=== PATIENT | female | born 1995 | race Hispanic/Latino ===

== ENCOUNTER 2024-02-25 02:13 | Observation (INO) | payer MEDICAID ==
[2024-02-25] MEDS ORDERED: Morphine 4 MG/ML VIAL ONE (02:33)
[2024-02-25] MEDS ORDERED: Ondansetron PF 4 MG/2 ML Vial ONE ×2 (02:33→08:27)
[2024-02-25 02:45] LABS: #Basophils 0.04 10x3/uL (0.0-0.2); #Eosinophils 0.13 10x3/uL (0.0-0.5); #Monocytes 0.47 10x3/uL (0.0-1.1); #Neutrophils 3.76 10x3/uL (1.5-8.4); %Basophils 0.5 % (0.0-2.0); %Eosinophils 1.7 % (0.0-6.0); %Lymphocytes 42.2 % (18.0-47.0); %Monocytes 6.1 % (0.0-10.0); %Neutrophils 49.2 % (40.0-75.0); Hematocrit 34.4 % (34.9-44.5); Mean Corpuscular HGB CONC 34.9 g/dL (32.0-36.0); Mean Corpuscular Hemoglobin 29.9 pg (27.0-33.0); Mean Corpuscular Volume 85.6 fL (81.6-98.3); Mean Platelet Volume 9.3 fL (7.4-10.4); Platelet Count 267 10x3/uL (150-450); RBC Distribution Width 12.7 % (11.5-14.5); Red Blood Cell (RBC) Count 4.02 10x6/uL (3.90-5.03); White Blood Cell (WBC) Count 7.7 10x3/uL (3.5-10.5)
[2024-02-25 03:08] LABS: ALT (SGPT) 50 U/L (8-55); AST (SGOT) 51 U/L (5-34); Albumin 3.9 g/dL (3.5-5.0); Alkaline Phosphatase 69 U/L (40-110); Anion Gap 15 mmol/L (10-20); BUN (Urea Nitrogen) 15 mg/dL (7.0-18.7); Bilirubin, Total 0.4 mg/dL (0.2-1.2); Calc. Creatinine Clearance 0 mL/min (70-130); Calcium 9.3 mg/dL (7.8-10.44); Carbon Dioxide 20 mmol/L (22-29); Chloride 106 mmol/L (98-107); Estimated GFR 117; Globulin 3.1 g/dL (2.4-3.5); Glucose 124 mg/dL (70-105); Lipase 36 U/L (8-78); Potassium 3.7 mmol/L (3.5-5.1); Sodium 137 mmol/L (136-145)
[2024-02-25 03:22] LABS: Bilirubin Neg (Negative); Blood, Urine Negative (Negative); Clarity Clear (Clear); Glucose, Urine (Dipstick) Normal (Negative); Ketone, Urine Negative (Negative); Leukocyte 25 (Negative); Nitrite Negative (Negative); Protein, Urine (Dipstick) Negative (Neg-Trace); Specific Gravity, Urine 1.015 (1.005-1.030); pH, Urine 6.5 (5.0-9.0)
[2024-02-25 03:28] LABS: Pregnancy Test - Urine (BHCG) Negative (Negative); Pregu Control Background? CLEAR/WHITE (CLR/WHITE); Pregu Control Bar Appear? YES (CONTROL BAR); Specific Gravity 1.015 (1.002-1.036)
[2024-02-25 03:30] LABS: CAUTI Indications for Culture Pelvic or flank pain; RBC/HPF 0-3 HPF (0-3)
[2024-02-25 03:32] LABS: Bacteria/HPF 2+ HPF (None Seen)
[2024-02-25 03:33] LABS: Urine Culture Reflex No No
[2024-02-25] MEDS ORDERED: Cephalexin 250 MG CAP ONE (03:41)
[2024-02-25] MEDS ORDERED: cefTRIAXone (ROCEPHIN) 1 GM VIAL ONE (05:40)
[2024-02-25] MEDS ORDERED: Bupivacaine HCl 0.5%/Epinephrine 1:200,000/PF 30 ml Vial ONE (06:55)
[2024-02-25] MEDS ORDERED: Sodium Chloride 0.9% 1,000 ML IV SCH (07:00)
[2024-02-25] MEDS ORDERED: Acetaminophen 325 MG TAB PO PRN (07:00)
[2024-02-25] MEDS ORDERED: fentaNYL 50 mcg/mL 1 mL Vial ONE ×2 (07:05→09:09)
[2024-02-25] MEDS ORDERED: Rocuronium Bromide 10 MG/ML (10ML VIAL) ONE (07:05)
[2024-02-25] MEDS ORDERED: Lidocaine 1% PF 5 ML VIAL ONE (07:05)
[2024-02-25] MEDS ORDERED: PROPOFOL 20 ML ONE (07:05)
[2024-02-25] MEDS ORDERED: Lactated Ringer's 1,000 ML IV SCH (07:30)
[2024-02-25] MEDS ORDERED: Ketorolac Tromethamine 30 MG (1 mL) VIAL IVP SCH ×2 (07:30→12:00)
[2024-02-25 07:51] VITALS: BP 115/73; TEMP 98.3
[2024-02-25] MEDS ORDERED: ePHEDrine Sulfate 50 MG/10 ML VIAL ONE (08:16)
[2024-02-25] MEDS ORDERED: SUGAMMADEX SODIUM 200 MG/2 ML VIAL ONE (08:26)
[2024-02-25] MEDS ORDERED: Dexamethasone 4 mg/ml Vial ONE (08:27)
[2024-02-25] MEDS ORDERED: Acetaminophen/Codeine 30-300mg Tablet PO PRN (09:04)
[2024-02-25] MEDS ORDERED: HYDROcodone/Acetaminophen 5/325 mg Tablet PO PRN (09:07)
[2024-02-25] MEDS ORDERED: Ibuprofen 200 MG TAB PO PRN (09:17)
[2024-02-25] MEDS: FLU (Fluarix Triv) TS24-25(6MOS UP)/PF 45 MCG/0.5 ML Syringe IM ONE (09:50)
[2024-02-25] MEDS: Scopolamine 1 mg/72 hour Patch TD SCH (10:10)
[2024-02-25] MEDS: HYDROcodone/Acetaminophen 5/325 mg Tablet PO PRN (10:11)
[2024-02-25] MEDS: Acetaminophen 500 MG TAB PO SCH (10:17)
[2024-02-25] MEDS: Ibuprofen 800 MG TAB PO SCH (11:28)
[2024-02-25] MEDS: Acetaminophen 325 MG TAB PO SCH (15:18)
[2024-02-25] MEDS ORDERED: Ferrous Sulfate 325 MG TAB PO SCH (17:00)
== END 2024-02-25 16:52 | disposition home or self-care (01) ==
LOC: CSHERS 02:13 → CSHTELE 05:36
PROVIDERS: ADMIT Surgery; ATTEND Surgery
PROC: 0FT44ZZ Resection of Gallbladder, Percutaneous Endoscopic Approach (ICD-10-PCS; principal; 2024-02-25)
DX: K80.12 Calculus of gallbladder with acute and chronic cholecystitis without obstruction (principal); Z79.899 Other long term (current) drug therapy
CPT/HCPCS: 74176; 76705; 80053; 81001; 81025; 83690; 85025; 88304; 96374; 96375; C1889; J0696; J1100; J2272; J2405; J2704; J3010